=== PATIENT | female | born 1950 | race Caucasian/White ===

== ENCOUNTER 2016-08-31 22:03 | Emergency (ER) | payer MEDICARE, OTHER ==
[2016-08-31] MEDS ORDERED: methylPREDNISolone Sodium Succinate 125 MG/2 ML SDV IVPUSH ONE (22:12)
--- NOTE | 2016-08-31 22:15 | EDM.PDOC ---
[id number] REACTION Time Seen by Provider: 08/31/16 22:13 Source of Information: Reports: Patient History Limitations: Reports: No limitations - History of Present Illness INITIAL COMMENTS - FREE TEXT/NARRATIVE: onset itchy hives all over [employer], took benadryl but not helping much. denies new F /CL/RX/DETERG - Related Data Allergies/ADRs: Allergies Allergy/AdvReac Type Severity Reaction Status Date / Time acetaminophen Allergy Cannot Verified 08/31/16 22:22 [From Darvocet-N 100] Remember iron Allergy Cannot Verified 08/31/16 22:22 Remember lisinopril Allergy Facial Verified 08/31/16 22:22 Swelling meperidine HCl [From Demerol] Allergy Cannot Verified 08/31/16 22:22 Remember Penicillins Allergy Rash Verified 08/31/16 22:22 pentazocine lactate Allergy Rash Verified 08/31/16 22:22 [From Talwin] propoxyphene napsylate Allergy Cannot Verified 08/31/16 22:22 [From Darvocet-N 100] Remember Sulfa (Sulfonamide Allergy Rash Verified 08/31/16 22:22 Antibiotics) margarine Allergy Shortness Uncoded 08/31/16 22:22 of Breath Home Meds: Home Meds Folic Acid 1 mg PO .EVERY OTHER DAY 05/09/14 [History] Lecithin, Soy [Lecithin] 1,200 mg PO DAILY 05/09/14 [History] Pyridoxine HCl [Vitamin B-6] 200 mg PO DAILY 05/09/14 [History] Triamcinolone Acetonide [Triamcinolone Acetonide 0.025% Crm] 1 applic TOP BID PRN 05/09/14 [History] Vitamin E 400 unit PO DAILY 05/09/14 [History] diphenhydrAMINE [Benadryl] 25 mg PO Q6H #60 cap 05/10/14 [Rx] Past Medical History Other HEENT History: slightly [place] to right ear Other Gastrointestinal History: Hx of Chrohns disease Other Musculoskeletal History: Back surgery in 1977 Social & Family History - Tobacco Use Smoking Status *Q: Never Smoker Second Hand Smoke Exposure: No - Alcohol Use Days Per Week of Alcohol Use: 0 - Recreational Drug Use Recreational Drug Use: No - Living Situation & Occupation Living situation: Reports: Occupation: retired ED ROS ALLERGIC REACTION - Review of Systems Review Of Systems: ROS reveals no pertinent complaints other than HPI. ED EXAM GENERAL NO PERIP PULSE - Physical Exam Exam: See Below Exam Limited By: No limitations General Appearance: alert, WD/WN, mild distress, other (itch) Ears: hearing grossly normal Throat/Mouth: Normal voice, No airway compromise Head: atraumatic Neck: non-tender, full range of motion Respiratory/Chest: no respiratory distress Cardiovascular: regular rate, rhythm GI/Abdominal: soft, non tender Neurological: alert, oriented, normal cognition, normal gait, no motor/sensory deficits Psychiatric: anxious Skin Exam: Other (hives) Lymphatic: no adenopathy Course - Vital Signs Last Recorded V/S: Last Vital Signs Temp 36.2 C 08/31/16 22:06 Pulse 87 08/31/16 23:07 Resp 16 08/31/16 23:07 BP 165/75 H 08/31/16 23:07 Pulse Ox 99 08/31/16 23:07 - Orders/Labs/Meds Meds: Medications Discontinued Medications Generic Name Dose Route Start Last Admin Trade Name Dinah PRN Reason Stop Dose Admin Methylprednisolone Sodium Succinate 125 mg 08/31/16 22:12 08/31/16 22:18 Solu-Medrol IVPUSH 08/31/16 22:13 125 mg ONETIME ONE Administration - Re-Assessments/Exams Free Text/Narrative Re-Assessment/Exam: 08/31/16 23:02 s/p IV solumedrol=much better. Departure - Departure Time of Disposition: 23:27 Disposition: Home, Self-Care 01 Condition: good Clinical Impression: Allergic urticaria Instructions: Hives, [id number] Referrals: Emilia Liu MD [Primary Care Provider] - Forms: ED Department Discharge Additional Instructions: 1) continue benadryl for hives 2) don't scratch too much 3) follow up at clinic or recheck as needed rx given: medrol odspak
[2016-08-31 23:08] VITALS: BP 165/75
== END 2016-08-31 23:27 | disposition home or self-care (01) ==
LOC: DL.ED 22:03
DX: L50.0 Allergic urticaria (principal); Z79.899 Other long term (current) drug therapy; Z88.8 Allergy status to other drugs, medicaments and biological substances; Z88.0 Allergy status to penicillin; Z88.2 Allergy status to sulfonamides; Z88.6 Allergy status to analgesic agent
CPT/HCPCS: 96374; 99283; J2930

== ENCOUNTER 2016-09-01 09:25 | Emergency (ER) | payer MEDICARE, OTHER ==
[2016-09-01 09:39] VITALS: BP 146/84
[2016-09-01] MEDS ORDERED: Dexamethasone 4 MG/ML SDV IVPUSH ONE (11:20)
[2016-09-01] MEDS ORDERED: Dexamethasone 4 MG/ML SDV IM ONE (11:24)
--- NOTE | 2016-09-01 11:26 | EDM.PDOC ---
ED HPI Allergic Reaction - General Chief Complaint: Allergic Reaction Stated Complaint: [id number] ALLERGIC REACTION BROKE OUT Time Seen by Provider: 09/01/16 11:19 - History of Present Illness INITIAL COMMENTS - FREE TEXT/NARRATIVE: Seen in the ED last evening and given solucortef and a prescription for medrol dose pack which she has not started. Came back to the ED because of itchy rash. No new environmental exposures. No changes in detergents, etc. No shortness of breath of wheezing. Timing/Duration: Reports: Day(s): (one day) Location, Skin: Reports: chest, abdomen, back, lower extremity, right, lower extremity, left Characteristics: Reports: patchy, urticarial Associated Symptoms: Reports: no other symptoms Suspected Etiology: Reports: unknown Recent Medical Care: yes Other Treatments THERAPEUTIC STRATEGY LEAD: See ED note. Prescription for Medrol Dose Pack - Related Data Allergies/ADRs: Allergies Allergy/AdvReac Type Severity Reaction Status Date / Time acetaminophen Allergy Cannot Verified 08/31/16 22:22 [From Darvocet-N 100] Remember iron Allergy Cannot Verified 08/31/16 22:22 Remember lisinopril Allergy Facial Verified 08/31/16 22:22 Swelling meperidine HCl [From Demerol] Allergy Cannot Verified 08/31/16 22:22 Remember Penicillins Allergy Rash Verified 08/31/16 22:22 pentazocine lactate Allergy Rash Verified 08/31/16 22:22 [From Talwin] propoxyphene napsylate Allergy Cannot Verified 08/31/16 22:22 [From Darvocet-N 100] Remember Sulfa (Sulfonamide Allergy Rash Verified 08/31/16 22:22 Antibiotics) margarine Allergy Shortness Uncoded 08/31/16 22:22 of Breath Home Meds: Home Meds Folic Acid 1 mg PO .EVERY OTHER DAY 05/09/14 [History] Lecithin, Soy [Lecithin] 1,200 mg PO DAILY 05/09/14 [History] Pyridoxine HCl [Vitamin B-6] 200 mg PO DAILY 05/09/14 [History] Triamcinolone Acetonide [Triamcinolone Acetonide 0.025% Crm] 1 applic TOP BID PRN 05/09/14 [History] Vitamin E 400 unit PO DAILY 05/09/14 [History] diphenhydrAMINE [Benadryl] 25 mg PO Q6H #60 cap 05/10/14 [Rx] Past Medical History HEENT History: Reports: Other (see below) Other HEENT History: slightly [place] to right ear Cardiovascular History: Reports: Hypertension Respiratory History: Reports: None Gastrointestinal History: Reports: Other (see below) Other Gastrointestinal History: Hx of Chrohns disease Genitourinary History: Reports: None 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: Musculoskeletal History: Reports: Other (see below) Other Musculoskeletal History: Back surgery in 1977 Neurological History: Reports: None Psychiatric History: Reports: None Endocrine/Metabolic History: Reports: None Hematologic History: Reports: None Dermatologic History: Reports: Eczema - Infectious Disease History Infectious Disease History: Reports: Chicken pox, Measles - Past Surgical History Female Surgical History: Reports: Hysterectomy Oncologic Surgical History: Reports: Mastectomy Social & Family History - Family History Family Medical History: Noncontributory - Tobacco Use Smoking Status *Q: Never Smoker Second Hand Smoke Exposure: No - Caffeine Use Caffeine Use: Reports: Tea - Alcohol Use Days Per Week of Alcohol Use: 0 - Recreational Drug Use Recreational Drug Use: No - Living Situation & Occupation Living situation: Reports: Occupation: retired ED ROS ALLERGIC REACTION - Review of Systems Review Of Systems: See Below Constitutional: Reports: no symptoms HEENT: Reports: No symptoms Respiratory: Reports: No Symptoms GI/Abdominal: Reports: No symptoms Skin: Reports: urticaria Psychiatric: Reports: No symptoms ED EXAM GENERAL NO PERIP PULSE - Physical Exam Exam: See Below Ears: normal external exam, normal canal, hearing grossly normal, normal TMs Nose: normal inspection, normal mucosa, no blood Throat/Mouth: Normal inspection, Normal lips, Normal teeth, Normal gums, Normal oropharynx, Normal voice, No airway compromise Head: atraumatic, normocephalic Neck: normal inspection, supple, non-tender, full range of motion Respiratory/Chest: no respiratory distress, lungs clear, normal breath sounds, no accessory muscle use, chest non-tender Cardiovascular: regular rate, rhythm Back Exam: No: CVA tenderness (R) Extremities: normal inspection, normal range of motion, non-tender, normal capillary refill, no pedal edema Neurological: alert, oriented, normal cognition, normal gait Skin Exam: Warm, Dry, Rash (scattered pink urticarial patches consitent with urticaria) Course - Vital Signs Last Recorded V/S: Last Vital Signs Temp 97.5 F 09/01/16 09:37 Pulse 120 H 09/01/16 09:37 Resp 16 09/01/16 09:37 BP 146/84 H 09/01/16 09:37 Pulse Ox 100 09/01/16 09:37 - Orders/Labs/Meds Meds: Medications Discontinued Medications Generic Name Dose Route Start Last Admin Trade Name Dinah PRN Reason Stop Dose Admin Dexamethasone 10 mg 09/01/16 11:20 09/01/16 11:25 Dexamethasone IVPUSH 09/01/16 11:21 10 mg ONETIME ONE Administration Dexamethasone 10 mg 09/01/16 11:24 Dexamethasone IM 09/01/16 11:25 ONETIME ONE Departure - Departure Time of Disposition: 11:29 Disposition: Home, Self-Care 01 Condition: good Clinical Impression: Urticaria, Allergic urticaria Instructions: Hives, [id number] Forms: ED Department Discharge Additional Instructions: Take Medrol Dose Pack as prescribed by Dr Lora
== END 2016-09-01 11:45 | disposition home or self-care (01) ==
LOC: DL.ED 09:25
DX: L50.0 Allergic urticaria (principal); I10 Essential (primary) hypertension; Z79.899 Other long term (current) drug therapy; Z88.2 Allergy status to sulfonamides; Z88.0 Allergy status to penicillin; Z88.8 Allergy status to other drugs, medicaments and biological substances; Z90.710 Acquired absence of both cervix and uterus; Z88.6 Allergy status to analgesic agent
CPT/HCPCS: 96374; 99282; J1100; 99284

== ENCOUNTER 2016-09-01 22:48 | Emergency (ER) | payer MEDICARE, OTHER ==
[2016-09-01] MEDS ORDERED: Dexamethasone 4 MG/ML SDV IVPUSH ONE (23:00)
[2016-09-01] MEDS ORDERED: Famotidine 20 MG/2 ML SDV IVPUSH ONE (23:00)
[2016-09-01] MEDS ORDERED: diphenhydrAMINE 50 MG/ML SDV IVPUSH ONE (23:01)
--- NOTE | 2016-09-01 23:02 | EDM.PDOC ---
ED HPI Skin/Rash - General Stated Complaint: ALLERGIC REACTION Time Seen by Provider: 09/01/16 23:02 Source: Reports: Patient History Limitations: Reports: No limitations - History of Present Illness INITIAL COMMENTS - FREE TEXT/NARRATIVE: was here yesterday and earlier today for hives - Related Data Allergies Allergy/AdvReac Type Severity Reaction Status Date / Time acetaminophen Allergy Cannot Verified 09/01/16 23:09 [From Darvocet-N 100] Remember iron Allergy Cannot Verified 09/01/16 23:09 Remember lisinopril Allergy Facial Verified 09/01/16 23:09 Swelling meperidine HCl [From Demerol] Allergy Cannot Verified 09/01/16 23:09 Remember Penicillins Allergy Rash Verified 09/01/16 23:09 pentazocine lactate Allergy Rash Verified 09/01/16 23:09 [From Talwin] propoxyphene napsylate Allergy Cannot Verified 09/01/16 23:09 [From Darvocet-N 100] Remember Sulfa (Sulfonamide Allergy Rash Verified 09/01/16 23:09 Antibiotics) margarine Allergy Shortness Uncoded 09/01/16 23:09 of Breath Home Meds: Ambulatory Orders Medication Instructions Recorded Confirmed Folic Acid 1 mg PO .EVERY OTHER DAY 05/09/14 09/01/16 Lecithin, Soy [Lecithin] 1,200 mg PO DAILY 05/09/14 09/01/16 Pyridoxine HCl [Vitamin B-6] 200 mg PO DAILY 05/09/14 09/01/16 Triamcinolone Acetonide 1 applic TOP BID PRN 05/09/14 09/01/16 [Triamcinolone Acetonide 0.025% Crm] Vitamin E 400 unit PO DAILY 05/09/14 09/01/16 diphenhydrAMINE [Benadryl] 25 mg PO Q6H #60 cap 05/10/14 09/01/16 Past Medical History HEENT History: Reports: Other (see below) Other HEENT History: slightly [place] to right ear Cardiovascular History: Reports: Hypertension Respiratory History: Reports: None Gastrointestinal History: Reports: Other (see below) Other Gastrointestinal History: Hx of Chrohns disease Genitourinary History: Reports: None [employer] History: Reports: Musculoskeletal History: Reports: Other (see below) Other Musculoskeletal History: Back surgery in 1977 Neurological History: Reports: None Psychiatric History: Reports: None Endocrine/Metabolic History: Reports: None Hematologic History: Reports: None Dermatologic History: Reports: Eczema - Infectious Disease History Infectious Disease History: Reports: Chicken pox, Measles - Past Surgical History Female Surgical History: Reports: Hysterectomy Oncologic Surgical History: Reports: Mastectomy Social & Family History - Family History Family Medical History: Noncontributory - Tobacco Use Smoking Status *Q: Never Smoker Second Hand Smoke Exposure: No - Caffeine Use Caffeine Use: Reports: Tea - Alcohol Use Days Per Week of Alcohol Use: 0 - Recreational Drug Use Recreational Drug Use: No - Living Situation & Occupation Living situation: Reports: Occupation: retired ED ROS GENERAL - Review of Systems Review Of Systems: ROS reveals no pertinent complaints other than HPI. ED EXAM, SKIN/RASH Exam: See Below Exam Limited By: No limitations General Appearance: alert, WD/WN, mild distress, other (itch) Ears: hearing grossly normal Throat/Mouth: Normal voice, No airway compromise Head: atraumatic Neck: non-tender, full range of motion Respiratory/Chest: no respiratory distress, no accessory muscle use Cardiovascular: regular rate, rhythm GI/Abdominal: soft, non tender Extremities: redness Neurological: alert, oriented, normal gait, no motor/sensory deficits Psychiatric: tearful Skin: Other (hives) Location, Skin: generalized Characteristics: urticarial Associated features: warmth Lymphatic: no adenopathy Course - Vital Signs Last Recorded V/S: Last Vital Signs Temp 36.4 C 09/01/16 23:05 Pulse 118 H 09/01/16 23:05 Resp 16 09/01/16 23:05 BP 152/70 H 09/01/16 23:05 Pulse Ox 98 09/01/16 23:05 - Orders/Labs/Meds Meds: Medications Discontinued Medications Generic Name Dose Route Start Last Admin Trade Name Antonioq PRN Reason Stop Dose Admin Dexamethasone 10 mg 09/01/16 23:00 09/01/16 23:20 Dexamethasone IVPUSH 09/01/16 23:01 10 mg ONETIME ONE Administration Diphenhydramine HCl 25 mg 09/01/16 23:01 09/01/16 23:18 Benadryl IVPUSH 09/01/16 23:02 25 mg ONETIME ONE Administration Famotidine 20 mg 09/01/16 23:00 09/01/16 23:16 Pepcid IVPUSH 09/01/16 23:01 20 mg ONETIME ONE Administration - Re-Assessments/Exams Free Text/Narrative Re-Assessment/Exam: 09/02/16 00:00 re-exam: s/p IV Rx = much better. wants to go home now. Departure - Departure Time of Disposition: 00:01 Disposition: Home, Self-Care 01 Condition: good Clinical Impression: Angioedema Forms: ED Department Discharge Additional Instructions: 1) try not to scratch too much 2) follow up at clinic or recheck as needed rx given: pepcid 20mg daily prn hives x 4
[2016-09-01 23:09] VITALS: BP 152/70
== END 2016-09-02 00:09 | disposition home or self-care (01) ==
LOC: DL.ED 22:48
DX: T78.3XXA Angioneurotic edema, initial encounter (principal); I10 Essential (primary) hypertension; Z90.710 Acquired absence of both cervix and uterus; Z88.6 Allergy status to analgesic agent; Z88.0 Allergy status to penicillin; Z88.5 Allergy status to narcotic agent; Z88.2 Allergy status to sulfonamides; Z88.8 Allergy status to other drugs, medicaments and biological substances; L50.0 Allergic urticaria; Z79.899 Other long term (current) drug therapy
CPT/HCPCS: 96374; 96375; 99282; 99283; 99284; J1100; J1200; S0028

== ENCOUNTER 2017-04-29 21:25 | Emergency (ER) | payer MEDICARE, OTHER ==
[2017-04-29] MEDS ORDERED: Sodium Chloride 0.9% 1,000 ML IV ONE (22:23)
--- NOTE | 2017-04-29 22:26 | EDM.PDOC ---
ED HPI GENERAL MEDICAL PROBLEM - General Chief Complaint: Gastrointestinal Problem Stated Complaint: BY AMBULANCE Time Seen by Provider: 04/29/17 22:23 Source of Information: Reports: Patient History Limitations: Reports: No Limitations (gives h/o crohn bee) - History of Present Illness INITIAL COMMENTS - FREE TEXT/NARRATIVE: gives h/o crohns been having diarrhoea past 3 days nauseous no vomiting. worried about dehydration. Treatments CRTT: Reports: Other (see below) Other Treatments CRTT: none Lower Abdomen Pain Score (Numeric/FACES): 5 - Related Data Allergies Allergy/AdvReac Type Severity Reaction Status Date / Time acetaminophen Allergy Cannot Verified 04/29/17 21:47 [From Darvocet-N 100] Remember iron Allergy Cannot Verified 04/29/17 21:47 Remember lisinopril Allergy Facial Verified 04/29/17 21:47 Swelling meperidine HCl [From Demerol] Allergy Cannot Verified 04/29/17 21:47 Remember Penicillins Allergy Rash Verified 04/29/17 21:47 pentazocine lactate Allergy Rash Verified 04/29/17 21:47 [From Talwin] propoxyphene napsylate Allergy Cannot Verified 04/29/17 21:47 [From Darvocet-N 100] Remember Sulfa (Sulfonamide Allergy Rash Verified 04/29/17 21:47 Antibiotics) margarine Allergy Shortness Uncoded 04/29/17 21:47 of Breath Home Meds: Home Meds Folic Acid 1 mg PO .EVERY OTHER DAY 05/09/14 [History] Lecithin, Soy [Lecithin] 1,200 mg PO DAILY 05/09/14 [History] Pyridoxine HCl [Vitamin B-6] 200 mg PO DAILY 05/09/14 [History] Triamcinolone Acetonide [Triamcinolone Acetonide 0.025% Crm] 1 applic TOP BID PRN 05/09/14 [History] Vitamin E 400 unit PO DAILY 05/09/14 [History] diphenhydrAMINE [Benadryl] 50 mg PO Q6H PRN 04/29/17 [History] Past Medical History HEENT History: Reports: Hard of Hearing, Other (See Below) Other HEENT History: hearing loss right ear Cardiovascular History: Reports: Hypertension Respiratory History: Reports: None Gastrointestinal History: Reports: Other (See Below) Other Gastrointestinal History: crohns Genitourinary History: Reports: None 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: Musculoskeletal History: Reports: None Other Musculoskeletal History: Back surgery in 1977 Neurological History: Reports: Migraines, Other (See Below) Other Neuro History: pierre's palsey Psychiatric History: Reports: None Endocrine/Metabolic History: Reports: None Hematologic History: Reports: Anemia, Blood Transfusion(s), Folic Acid Immunologic History: Reports: None Oncologic (Cancer) History: Reports: Breast Other Oncologic History: completed chemo in 2016 Dermatologic History: Reports: Eczema - Infectious Disease History Infectious Disease History: Reports: Chicken Pox, Measles - Past Surgical History HEENT Surgical History: Reports: Adenoidectomy, Tonsillectomy GI Surgical History: Reports: Other (See Below) Other GI Surgeries/Procedures: small bowel resection x 2 Female Surgical History: Reports: Hysterectomy Oncologic Surgical History: Reports: Mastectomy Social & Family History - Family History Family Medical History: Noncontributory - Tobacco Use Smoking Status *Q: Never Smoker Second Hand Smoke Exposure: No - Caffeine Use Caffeine Use: Reports: Tea - Alcohol Use Days Per Week of Alcohol Use: 0 - Recreational Drug Use Recreational Drug Use: No - Living Situation & Occupation Living situation: Reports: Occupation: Retired ED ROS GENERAL - Review of Systems Review Of Systems: ROS reveals no pertinent complaints other than HPI. ED EXAM, GI/ABD - Physical Exam Exam: See Below Exam Limited By: No Limitations General Appearance: Alert, WD/WN, Anxious, Mild Distress, Other (distraught) Ears: Hearing Grossly Normal Throat/Mouth: Normal Voice, No Airway Compromise Head: Atraumatic Neck: Non-Tender, Full Range of Motion Respiratory/Chest: No Respiratory Distress Cardiovascular: Regular Rate, Rhythm GI/Abdominal Exam: Soft, Tender, Other (periumb discomfort, hyper BS). No: Distended, Guarding, Rigid, Rebound Neurological: Alert, Oriented, Normal Cognition, Normal Gait, No Motor/Sensory Deficits Psychiatric: Anxious Skin Exam: Warm, Dry, Normal Color Course - Vital Signs Last Recorded V/S: Last Vital Signs Temp 36.5 C 04/29/17 23:38 Pulse 98 04/29/17 23:38 Resp 18 04/29/17 23:38 BP 140/65 04/29/17 23:38 Pulse Ox 96 04/29/17 23:38 - Orders/Labs/Meds Orders: Active Orders 24 hr Category Date Time Status Sodium Chloride 0.9% [Normal Saline] 1,000 ml Med 04/29/17 22:23 Active IV ONETIME Medication Orders Sodium Chloride (Normal Saline) 1,000 mls @ 500 mls/hr IV ONETIME ONE Stop: 04/30/17 00:22 Last Admin: 04/29/17 23:20 Dose: 500 mls/hr Labs: Laboratory Tests 04/29/17 04/29/17 04/29/17 Range/Units 21:30 21:30 22:10 WBC 15.2 H (5.0-10.0) 10^3/uL RBC 4.97 (4.2-5.4) 10^6/uL Hgb 13.3 D (12.0-16.0) g/dL Hct 40.9 (37.0-47.0) % MCV 82.3 D (80-100) fL MCH 26.8 L (27.0-34.0) pg MCHC 32.5 L (33.0-35.0) g/dL Plt Count 237 (150-450) 10^3/uL Neut % (Auto) 92.9 H (42.2-75.2) % Lymph % (Auto) 1.2 L (20.5-50.1) % [place] % (Auto) 5.7 (2-8) % Eos % (Auto) 0.1 L (1.0-3.0) % Baso % (Auto) 0.1 (0.0-1.0) % Sodium 136 (135-145) mmol/L Potassium 3.6 (3.6-5.0) mmol/L Chloride 102 (101-111) mmol/L Carbon Dioxide 24.0 (21.0-31.0) mmol/L Anion Gap 13.6 BUN 13 (7-18) mg/dL Creatinine 0.7 (0.6-1.3) mg/dL Est Cr Clr Drug Dosing 51.60 mL/min Estimated GFR (MDRD) > 60 BUN/Creatinine Ratio 18.57 Glucose 128 H (74-105) mg/dL Calcium 9.3 (8.4-10.2) mg/dl Total Bilirubin 1.0 (0.2-1.0) mg/dL AST 22 (10-42) IU/L ALT 20 (10-60) IU/L Alkaline Phosphatase 61 (42-121) IU/L Total Protein 7.3 (6.7-8.2) g/dl Albumin 3.9 (3.2-5.5) g/dl Globulin 3.4 Albumin/Globulin Ratio 1.15 Urine Color Yellow (YELLOW) Urine Appearance Clear (CLEAR) Urine pH 5.5 (5.0-9.0) Ur Specific [place] >= 1.030 (1.005-1.030) Urine Protein Negative (NEGATIVE) Urine Glucose (UA) Negative (NEGATIVE) Urine Ketones 80 H (NEGATIVE) Urine Occult Blood Negative (NEGATIVE) Urine Nitrite Negative (NEGATIVE) Urine Bilirubin Negative (NEGATIVE) Urine Urobilinogen 0.2 (0.2-1.0) mg/dL Ur Leukocyte Esterase Negative (NEGATIVE) Urine RBC 0-5 /HPF Urine WBC 0-5 (0-5/HPF) /HPF Ur Epithelial Cells Moderate H /HPF Urine Bacteria Moderate H (0-FEW/HPF) /HPF Urine Mucus Few H /LPF Meds: Medications Generic Name Dose Route Start Last Admin Trade Name Freq PRN Reason Stop Dose Admin Sodium Chloride 1,000 mls @ 500 mls/hr 04/29/17 22:23 04/29/17 23:20 Normal Saline IV 04/30/17 00:22 500 mls/hr ONETIME ONE Administration Departure - Departure Time of Disposition: 00:21 Disposition: DC/Tfer to Acute Hospital 02 Condition: Good Clinical Impression: Small bowel obstruction due to adhesions Crohns disease of small intestine Qualifiers: Digestive disease complication type: with intestinal obstruction Qualified Code (s): K50.012 - Crohn's disease of small intestine with intestinal obstruction - Discharge Information Forms: Interfacility Transfer EMTALA - My Orders Last 24 Hours: My Active Orders 04/29/17 22:23 Sodium Chloride 0.9% [Normal Saline] 1,000 ml IV ONETIME - Assessment/Plan Last 24 Hours: My Active Orders 04/29/17 22:23 Sodium Chloride 0.9% [Normal Saline] 1,000 ml IV ONETIME
[2017-04-29 22:34] LABS: CHLORIDE,CL 102 mmol/L (101-111); SODIUM,NA 136 mmol/L (135-145)
[2017-04-29 23:39] VITALS: BP 140/65
== END 2017-04-30 01:30 ==
LOC: DL.ED 21:25 → EEVIPCON 21:25 → DL.ED 04-30 01:30
DX: K50.012 Crohn's disease of small intestine with intestinal obstruction (principal); I10 Essential (primary) hypertension; Z88.0 Allergy status to penicillin; Z88.8 Allergy status to other drugs, medicaments and biological substances; Z88.6 Allergy status to analgesic agent; Z79.899 Other long term (current) drug therapy
CPT/HCPCS: 36415; 74176; 80053; 81001; 85025; 96360; 96361; 99285; J7030

== ENCOUNTER 2017-09-11 20:41 | Emergency (ER) | payer MEDICARE, OTHER ==
[2017-09-11] MEDS ORDERED: Sodium Chloride 0.9% 1,000 ML IV ONE (20:57)
[2017-09-11] MEDS ORDERED: Iopamidol 612 MG/ML 50 ML SDV IVPUSH ONE ×2 (21:20)
[2017-09-11] MEDS ORDERED: Ondansetron 4 MG Tab.DIS PO ONE (21:26)
[2017-09-11 21:27] LABS: CHLORIDE,CL 100 mmol/L (101-111); SODIUM,NA 136 mmol/L (135-145)
[2017-09-11] MEDS ORDERED: HYDROmorphone 0.5 MG/0.5 ML Syringe IVPUSH ONE ×2 (21:27→23:10)
--- NOTE | 2017-09-11 21:31 | EDM.PDOC ---
ED HPI GENERAL MEDICAL PROBLEM - General Chief Complaint: Gastrointestinal Problem Stated Complaint: IN THROUGH BAY Time Seen by Provider: 09/11/17 21:11 Source of Information: Reports: Patient History Limitations: Reports: No Limitations - History of Present Illness INITIAL COMMENTS - FREE TEXT/NARRATIVE: ED with c/o severe lower abdominal pain and vomiting, pain started this am, vomited x 1 tonight. Hx Crohns, and hx of bowel obstructions, Feels similar. No fevers. Right Abdomen Pain Score (Numeric/FACES): 8 - Related Data Allergies Allergy/AdvReac Type Severity Reaction Status Date / Time acetaminophen Allergy Cannot Verified 09/11/17 21:05 [From Darvocet-N 100] Remember iron Allergy Cannot Verified 09/11/17 21:05 Remember lisinopril Allergy Facial Verified 09/11/17 21:05 Swelling meperidine HCl [From Demerol] Allergy Cannot Verified 09/11/17 21:05 Remember Penicillins Allergy Rash Verified 09/11/17 21:05 pentazocine lactate Allergy Rash Verified 09/11/17 21:05 [From Talwin] propoxyphene napsylate Allergy Cannot Verified 09/11/17 21:05 [From Darvocet-N 100] Remember Sulfa (Sulfonamide Allergy Rash Verified 09/11/17 21:05 Antibiotics) margarine Allergy Shortness Uncoded 09/11/17 21:05 of Breath Home Meds: Home Meds Folic Acid 1 mg PO .EVERY OTHER DAY 05/09/14 [History] Lecithin, Soy [Lecithin] 1,200 mg PO DAILY 05/09/14 [History] Pyridoxine HCl [Vitamin B-6] 200 mg PO DAILY 05/09/14 [History] Triamcinolone Acetonide [Triamcinolone Acetonide 0.025% Crm] 1 applic TOP BID PRN 05/09/14 [History] Vitamin E 400 unit PO DAILY 05/09/14 [History] diphenhydrAMINE [Benadryl] 50 mg PO Q6H PRN 04/29/17 [History] Past Medical History HEENT History: Reports: Hard of Hearing, Other (See Below) Other HEENT History: hearing loss right ear Cardiovascular History: Reports: Hypertension Respiratory History: Reports: None Gastrointestinal History: Reports: Other (See Below) Other Gastrointestinal History: crohns Genitourinary History: Reports: None 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: Musculoskeletal History: Reports: None Other Musculoskeletal History: Back surgery in 1977 Neurological History: Reports: Migraines, Other (See Below) Other Neuro History: pierre's palsey Psychiatric History: Reports: None Endocrine/Metabolic History: Reports: None Hematologic History: Reports: Anemia, Blood Transfusion(s), Folic Acid Immunologic History: Reports: None Oncologic (Cancer) History: Reports: Breast Other Oncologic History: completed chemo in 2016 Dermatologic History: Reports: Eczema - Infectious Disease History Infectious Disease History: Reports: Chicken Pox, Measles - Past Surgical History HEENT Surgical History: Reports: Adenoidectomy, Tonsillectomy GI Surgical History: Reports: Other (See Below) Other GI Surgeries/Procedures: small bowel resection x 2 Female Surgical History: Reports: Hysterectomy Oncologic Surgical History: Reports: Mastectomy Social & Family History - Family History Family Medical History: Noncontributory - Tobacco Use Smoking Status *Q: Never Smoker - Caffeine Use Caffeine Use: Reports: Tea - Recreational Drug Use Recreational Drug Use: No - Living Situation & Occupation Living situation: Reports: Occupation: Retired ED ROS GENERAL - Review of Systems Review Of Systems: See Below Constitutional: Denies: Fever, Chills HEENT: Reports: No Symptoms Respiratory: Reports: No Symptoms Cardiovascular: Reports: No Symptoms GI/Abdominal: Reports: Abdominal Pain (lower), Nausea, Vomiting : Reports: No Symptoms Musculoskeletal: Reports: No Symptoms Skin: Reports: No Symptoms Neurological: Reports: No Symptoms ED EXAM, GI/ABD - Physical Exam Exam: See Below Exam Limited By: No Limitations General Appearance: Alert, Mild Distress, Thin Eyes: Bilateral: Normal Appearance Ears: Normal External Exam Nose: Normal Inspection Throat/Mouth: Normal Inspection Head: Atraumatic, Normocephalic Neck: Normal Inspection, Full Range of Motion Respiratory/Chest: No Respiratory Distress, Lungs Clear, Normal Breath Sounds Cardiovascular: Normal Peripheral Pulses, Regular Rate, Rhythm, Tachycardia GI/Abdominal Exam: Distended (mild lower), Guarding, Tender, Abnormal Bowel Sounds (absent lower) Extremities: Normal Inspection Neurological: Alert, Oriented, Normal Cognition Psychiatric: Normal Affect, Normal Mood Skin Exam: Warm, Dry, Intact, Normal Color Course - Vital Signs Last Recorded V/S: Last Vital Signs Temp 99.3 F 09/11/17 23:28 Pulse 99 09/11/17 23:28 Resp 19 09/11/17 23:28 BP 123/62 09/11/17 23:28 Pulse Ox 96 09/11/17 23:28 - Orders/Labs/Meds Orders: Active Orders 24 hr Category Date Time Status CULTURE BLOOD [BC] Stat Lab 09/11/17 22:52 Received UA W/MICROSCOPIC [URIN] Stat Lab 09/11/17 22:59 Ordered Labs: Laboratory Tests 09/11/17 09/11/17 09/11/17 Range/Units 20:52 20:52 22:52 WBC 16.9 H (5.0-10.0) 10^3/uL RBC 5.18 (4.2-5.4) 10^6/uL Hgb 14.1 (12.0-16.0) g/dL Hct 43.4 (37.0-47.0) % MCV 83.8 (80-100) fL MCH 27.2 (27.0-34.0) pg MCHC 32.5 L (33.0-35.0) g/dL Plt Count 264 (150-450) 10^3/uL Neut % (Auto) 91.8 H (42.2-75.2) % Lymph % (Auto) 1.8 L (20.5-50.1) % Ford % (Auto) 6.2 (2-8) % Eos % (Auto) 0.1 L (1.0-3.0) % Baso % (Auto) 0.1 (0.0-1.0) % Sodium 136 (135-145) mmol/L Potassium 4.8 (3.6-5.0) mmol/L Chloride 100 L (101-111) mmol/L Carbon Dioxide 28.0 (21.0-31.0) mmol/L Anion Gap 12.8 BUN 13 (7-18) mg/dL Creatinine 0.7 (0.6-1.3) mg/dL Est Cr Clr Drug Dosing 50.51 mL/min Estimated GFR (MDRD) > 60 BUN/Creatinine Ratio 18.57 Glucose 153 H (74-105) mg/dL Lactic Acid 1.4 (0.5-2.2) mmol/L Calcium 9.8 (8.4-10.2) mg/dl Total Bilirubin 0.9 (0.2-1.0) mg/dL AST 22 (10-42) IU/L ALT 19 (10-60) IU/L Alkaline Phosphatase 72 (42-121) IU/L Total Protein 7.5 (6.7-8.2) g/dl Albumin 4.1 (3.2-5.5) g/dl Globulin 3.4 Albumin/Globulin Ratio 1.21 Amylase 62 (28-100) U/L Lipase 20 L (22-51) U/L Urine Color (YELLOW) Urine Appearance (CLEAR) Urine pH (5.0-9.0) Ur Specific [place] (1.005-1.030) Urine Protein (NEGATIVE) Urine Glucose (UA) (NEGATIVE) Urine Ketones (NEGATIVE) Urine Occult Blood (NEGATIVE) Urine Nitrite (NEGATIVE) Urine Bilirubin (NEGATIVE) Urine Urobilinogen (0.2-1.0) mg/dL Ur Leukocyte Esterase (NEGATIVE) Urine RBC /HPF Urine WBC (0-5/HPF) /HPF Ur Epithelial Cells /HPF Amorphous Sediment (0/HPF) /HPF Urine Bacteria (0-FEW/HPF) /HPF 09/11/17 Range/Units 22:59 WBC (5.0-10.0) 10^3/uL RBC (4.2-5.4) 10^6/uL Hgb (12.0-16.0) g/dL Hct (37.0-47.0) % MCV (80-100) fL MCH (27.0-34.0) pg MCHC (33.0-35.0) g/dL Plt Count (150-450) 10^3/uL Neut % (Auto) (42.2-75.2) % Lymph % (Auto) (20.5-50.1) % [place] % (Auto) (2-8) % Eos % (Auto) (1.0-3.0) % Baso % (Auto) (0.0-1.0) % Sodium (135-145) mmol/L Potassium (3.6-5.0) mmol/L Chloride (101-111) mmol/L Carbon Dioxide (21.0-31.0) mmol/L Anion Gap BUN (7-18) mg/dL Creatinine (0.6-1.3) mg/dL Est Cr Clr Drug Dosing mL/min Estimated GFR (MDRD) BUN/Creatinine Ratio Glucose (74-105) mg/dL Lactic Acid (0.5-2.2) mmol/L Calcium (8.4-10.2) mg/dl Total Bilirubin (0.2-1.0) mg/dL AST (10-42) IU/L ALT (10-60) IU/L Alkaline Phosphatase (42-121) IU/L Total Protein (6.7-8.2) g/dl Albumin (3.2-5.5) g/dl Globulin Albumin/Globulin Ratio Amylase (28-100) U/L Lipase (22-51) U/L Urine Color Yellow (YELLOW) Urine Appearance Cloudy (CLEAR) Urine pH 7.5 (5.0-9.0) Ur Specific [place] 1.015 (1.005-1.030) Urine Protein Negative (NEGATIVE) Urine Glucose (UA) Negative (NEGATIVE) Urine Ketones 40 H (NEGATIVE) Urine Occult Blood Negative (NEGATIVE) Urine Nitrite Negative (NEGATIVE) Urine Bilirubin Negative (NEGATIVE) Urine Urobilinogen 0.2 (0.2-1.0) mg/dL Ur Leukocyte Esterase Negative (NEGATIVE) Urine RBC Not seen /HPF Urine WBC 0-5 (0-5/HPF) /HPF Ur Epithelial Cells Occasional /HPF Amorphous Sediment Many H (0/HPF) /HPF Urine Bacteria Few (0-FEW/HPF) /HPF Meds: Medications Discontinued Medications Generic Name Dose Route Start Last Admin Trade Name Freq PRN Reason Stop Dose Admin Hydromorphone HCl 0.5 mg 09/11/17 21:27 09/11/17 21:32 Dilaudid IVPUSH 09/11/17 21:28 0.5 mg ONETIME ONE Administration Hydromorphone HCl 0.5 mg 09/11/17 23:10 09/11/17 23:16 Dilaudid IVPUSH 09/11/17 23:11 0.5 mg ONETIME ONE Administration Sodium Chloride 1,000 mls @ 200 mls/hr 09/11/17 20:57 09/11/17 21:11 Normal Saline IV 09/12/17 01:56 200 mls/hr .BOLUS ONE Administration Iopamidol 50 ml 09/11/17 21:20 09/11/17 23:02 Isovue-300 (61%) IVPUSH 09/11/17 21:21 Not Given ONETIME ONE Iopamidol 75 ml 09/11/17 21:20 09/11/17 21:52 Isovue-300 (61%) IVPUSH 09/11/17 21:21 65 ml ONETIME ONE Administration Ondansetron HCl 4 mg 09/11/17 21:26 09/11/17 21:31 Zofran Odt PO 09/11/17 21:27 4 mg ONETIME ONE Administration - Radiology Interpretation Free Text/Narrative:: CT abdomen with small bowel obstruction at mid small bowel, likely from adhesion. Mild short segment enteritis of the neoterminal ileum. - Re-Assessments/Exams Free Text/Narrative Re-Assessment/Exam: 09/12/17 03:49 Dr. Patricia Post accepting of patient for further evaluation and management. Tx via [facility]. Departure - Departure Time of Disposition: 00:20 Disposition: DC/Tfer to Acute Hospital 02 Condition: Fair Clinical Impression: Small bowel obstruction - Discharge Information Referrals: PCP,Unobtain [Primary Care Provider] - Forms: ED Department Discharge - My Orders Last 24 Hours: My Active Orders 09/11/17 22:52 CULTURE BLOOD [BC] Stat 09/11/17 22:59 UA W/MICROSCOPIC [URIN] Stat - Assessment/Plan Last 24 Hours: My Active Orders 09/11/17 22:52 CULTURE BLOOD [BC] Stat 09/11/17 22:59 UA W/MICROSCOPIC [URIN] Stat
[2017-09-11 23:29] VITALS: BP 123/62
== END 2017-09-12 00:21 ==
LOC: DL.ED 20:41
DX: K56.609 Unspecified intestinal obstruction, unspecified as to partial versus complete obstruction (principal); I10 Essential (primary) hypertension; Z88.8 Allergy status to other drugs, medicaments and biological substances; Z88.0 Allergy status to penicillin; Z88.2 Allergy status to sulfonamides; Z79.899 Other long term (current) drug therapy
CPT/HCPCS: 36415; 74177; 80053; 81001; 82150; 83605; 83690; 85025; 87040; 96361; 96374; 96376; 99285; A9270; J1170; J7030; Q9967

== ENCOUNTER 2022-05-31 10:05 | Emergency (ER) | payer MEDICARE, OTHER ==
[2022-05-31] MEDS ORDERED: Lidocaine 1% 10 ML MDV INJECT ONE (10:19)
[2022-05-31 10:39] VITALS: BP 167/84; PULSE 80
[2022-05-31] MEDS ORDERED: Diphtheria,Pertussis(Acell),Tetanus Vaccine 0.5 ML Syringe IM ONE (11:46)
[2022-05-31] MEDS ORDERED: Bacitracin Oint 1 GM U/D Packet TOP ONE (11:52)
== END 2022-05-31 12:17 | disposition home or self-care (01) ==
LOC: DL.ED 10:05
DX: S52.501A Unspecified fracture of the lower end of right radius, initial encounter for closed fracture (principal); S01.81XA Laceration without foreign body of other part of head, initial encounter; I10 Essential (primary) hypertension; Z23 Encounter for immunization; Z79.899 Other long term (current) drug therapy; Z91.048 Other nonmedicinal substance allergy status; Z88.8 Allergy status to other drugs, medicaments and biological substances; Z88.5 Allergy status to narcotic agent; Z88.0 Allergy status to penicillin; Z88.2 Allergy status to sulfonamides; W00.0XXA Fall on same level due to ice and snow, initial encounter; Y93.01 Activity, walking, marching and hiking
CPT/HCPCS: 12013; 29125; 70450; 73110; 90471; 90715; 99284; A9270; J3490